=== PATIENT | female | born 1985 | race Caucasian/White ===

== ENCOUNTER 2016-05-16 19:20 | Emergency (ER) | payer BC ==
--- NOTE | 2016-05-16 19:54 | Emergency Department Record ---
History of Present Illness - General Chief Complaint: Abdominal Pain Stated Complaint: R SIDE PAIN Time Seen by Provider: 05/16/16 19:29 Source: Patient Mode of Arrival: Ambulatory Limitations: No limitations - History of Present Illness Initial Comments: 30 yo female presents to ED with a CC of right sided flank pain that began approximately 12 hours ago, reports similar symptoms with previous kidney stones. Patient denies fevers, chills, nausea, or vomiting symptoms, does report decreased urine output this afternoon and believes that a stone "might be stuck". Patient denies health problems at her baseline, reports lithotripsy with Dr. Roman previously. Complaint: Flank pain Onset/Timin -: Hour(s) Location: R Flank Radiation: None Migration to: No migration Severity: Mild Quality: Other Consistency: Constant Improves With: Nothing Worsens With: Nothing Context: Other Associated Symptoms: Hematuria, Other - Related Data LMP (females 10-50): Current Patient : No Home Medications Medication Instructions Recorded Confirmed Last Taken Dextroamphetamine/Amphetamine 20 mg PO QD tab 04/04/16 05/16/16 Unknown [Adderall] Sertraline HCl [Zoloft] 50 mg PO QD tab 04/04/16 05/16/16 Unknown Previous Rx's Medication Instructions Recorded Hydrocodone/Acetaminophen [Conception 1 tab PO Q6H PRN #10 tab 05/16/16 5mg/325mg] Tamsulosin HCl [Flomax] 0.4 mg PO DAILY #10 cap.er.24h 05/16/16 Allergies Allergy/AdvReac Type Severity Reaction Status Date / Time Penicillins Allergy rash Verified 05/16/16 19:30 Travel Screening - Travel/Exposure Within Last 30 Days Have you traveled within the last 30 days?: No - Travel/Exposure Within Last Year Have you traveled outside the [place] in the last year?: No - Additonal Travel Details Have you been exposed to anyone with a communicable illness?: No - Travel Symptoms Symptom Screening: None Review of Systems Constitutional: Denies: Chills, Fever, Malaise, Night sweats Eyes: Denies: Eye discharge, Eye pain ENT: Denies: Congestion, Ear pain, Epistaxis Respiratory: Denies: Cough, Dyspnea Cardiovascular: Denies: Chest pain, Dyspnea on exertion Endocrine: Denies: Fatigue, Heat or cold intolerance Gastrointestinal: Reports: Abdominal pain. Denies: Nausea, Vomiting Genitourinary: Reports: Dysuria, Retention. Denies: Frequency, Hematuria, Incontinence Musculoskeletal: Reports: Back pain (right sided flank pain). Denies: Arthralgia, Gout, Joint swelling Skin: Denies: Bruising, Change in color, Change in hair/nails Neurological: Denies: Abnormal gait, Confusion, Headache, Seizure Psychiatric: Denies: Anxiety Hematological/Lymphatic: Denies: Anemia, Blood Clots Past Medical History - SOCIAL HISTORY Smoking Status: Never smoker Alcohol Use: Occassional Drug Use: None - RESPIRATORY Hx Respiratory Disorders: No - CARDIOVASCULAR Hx Cardio Disorders: No - NEURO Hx Neuro Disorders: No - GI Hx GI Disorders: No - Hx Genitourinary Disorders: Yes Hx Kidney Stones: Yes - ENDOCRINE Hx Endocrine Disorders: No - MUSCULOSKELETAL Hx Musculoskeletal Disorders: No - PSYCH Hx Psych Problems: No - HEMATOLOGY/ONCOLOGY Hx Hematology/Oncology Disorders: No Family Medical History Any Significant Family History?: No Physical Exam - General General Appearance: Alert, Oriented x3, Cooperative, Moderate distress Limitations: No limitations - Head Head exam: Atraumatic, Normocephalic, Normal inspection Head exam detail: negative: Abrasion, Contusion, Ramsay's sign, General tenderness, Hematoma, Laceration - Eye Eye exam: Normal appearance. negative: Conjunctival injection, Periorbital swelling, Periorbital tenderness, Scleral icterus - ENT Ear exam: negative: Auricular hematoma, Auricular trauma Nasal Exam: negative: Active bleeding, Discharge, Dried blood, Foreign body Mouth exam: negative: Drooling, Laceration, Muffled voice, Tongue elevation - Neck Neck exam: Normal inspection. negative: Meningismus, Tenderness - Respiratory Respiratory exam: Normal lung sounds bilaterally. negative: Respiratory distress, Rhonchi, Stridor, Wheezes - Cardiovascular Cardiovascular Exam: Regular rate, Normal rhythm, Normal heart sounds - GI/Abdominal GI/Abdominal exam: Soft, Tenderness (mild tendernss on examiantion to the RLQ/ suprapubic and LLQ regions, no rebound, guarding, or peritoneal signs on examination). negative: Rebound, Rigid - Rectal Rectal exam: Deferred - exam: Deferred - Extremities Extremities exam: Normal inspection. negative: Calf tenderness, Pedal edema, Tenderness - Back Back exam: Reports: CVA tenderness (R). Denies: CVA tenderness (L) - Neurological Neurological exam: Alert, Normal gait, Oriented X3 - Psychiatric Psychiatric exam: Normal affect, Normal mood - Skin Skin exam: Normal color. negative: Abrasion Type of lesion: negative: abrasion Course Vital Signs 05/16/16 19:22 Temperature 98.7 F Pulse Rate 90 Respiratory 20 Rate Blood Pressure 130/87 Pulse Ox 95 - Reevaluation(s) Reevaluation #1: 05/16/16 20:34 Labs reviewed, UA large blood, otherwise labs are grossly unremarkable for an acute process. Reevaluation #2: 05/16/16 20:57 CT Abdomen and Pelvis: 5 mm partially obstructing stone right UVJ, mild- moderate hydronephrosis is present. Patient reassessed, reports that her pain symptoms are greatly improved. Patient was updated on all results, and appears stable for discharge on Flomax, Conception with instructions to follow-up with Dr. Roman in 1-3 day as directed. Medical Decision Making - Lab Data Result diagrams: 05/16/16 19:50 05/16/16 19:50 Disposition Disposition: Discharge Clinical Impression: Calculus of right kidney Disposition: Home, Self-Care Condition: (2) Stable Instructions: Kidney Stones (ED) Additional Instructions: Return to ED if your symptoms worsen or if you have any concerns. Conception and Flomax as directed. Follow-up with Dr. Roman in 1-3 days as directed. Prescriptions: Tamsulosin HCl [Flomax] 0.4 mg PO DAILY #10 cap.er.24h Hydrocodone/Acetaminophen [Conception 5mg/325mg] 1 tab PO Q6H PRN #10 tab PRN Reason: Pain - General Referrals: CHENCHO ROMAN [] - Forms: Patient Portal Access Time of Disposition: 21:00
[2016-05-16] MEDS: KETOROLAC 30 MG/ML VIAL IVP ONE (19:56)
[2016-05-16 19:58] LABS: BASO % 0.4 % (0-6); EOS % 1.1 % (0-6); GRAN % 51.4 % (47-80); HEMOGLOBIN 13.1 gm/dl (11.6-16.0); MEAN CELL VOLUME 88.5 fl (81-97); MEAN CORPUSCULAR HEMOGLOBIN 31.3 pg (27-33); MEAN CORPUSCULAR HGB CONC 35.4 g/dl (32-36); MEAN PLATELET VOLUME 10.1 fl (7.4-10.4); MONO % 8.1 % (0-9); PLATELET COUNT 190 K/uL (130-400); RED BLOOD COUNT 4.18 M/uL (3.80-5.40); RED CELL DISTRIBUTION WIDTH 12.9 % (11.5-14.5)
[2016-05-16 19:59] LABS: URINE APPEARANCE CLEAR; URINE BILIRUBIN NEGATIVE (NEGATIVE); URINE BLOOD LARGE (NEGATIVE); URINE COLOR YELLOW; URINE GLUCOSE (UA) NEGATIVE (NEGATIVE); URINE KETONE NEGATIVE (NEGATIVE); URINE LEUKOCYTE ESTERASE NEGATIVE (NEGATIVE); URINE NITRITE NEGATIVE (NEGATIVE); URINE PROTEIN NEGATIVE (NEGATIVE); URINE UROBILINOGEN 0.2 E.U./dL (0.20 - 1.00)
[2016-05-16 20:01] LABS: HCG,QUALITATIVE URINE NEGATIVE (NEGATIVE)
[2016-05-16 20:06] LABS: URINE AMORPHOUS SEDIMENT 1+; URINE BACTERIA NONE SEEN; URINE EPITHELIAL CELLS 0 - 2 (FEW); URINE WBC 0 - 2 (0-2/hpf)
[2016-05-16 20:13] LABS: ALB/GLOB RATIO 1.5 (1.1-1.8); ALBUMIN 4.1 gm/dL (3.5-5.0); ALKALINE PHOSPHATASE 67 U/L (38-126); ALT/SGPT 32 U/L (9-52); ANION GAP 10.2 (7-16); AST/SGOT 24 U/L (14-36); BILIRUBIN,TOTAL 0.38 mg/dL (0.2-1.3); BLOOD UREA NITROGEN 13 mg/dL (7-17); CARBON DIOXIDE 21.8 mmol/L (22-30); CREATININE 0.9 mg/dL (0.52-1.04); EST GLOMERULAR FILTRATION RATE > 60 ml/min; GLUCOSE,RANDOM 93 mg/dL (70-110); LIPASE 112 U/L (23-300); TOTAL PROTEIN 6.9 gm/dL (6.3-8.2)
[2016-05-16] MEDS: HYDROCODONE/APAP 5/325MG TABLET PO ONE (21:06)
--- NOTE | 2016-05-19 14:12 | CT SCAN REPORT ---
DATE: 05/16/2016. EXAM: CT SCAN OF THE ABDOMEN AND PELVIS. HISTORY: The patient has right flank pain. TECHNIQUE: Serial axial CT scan of the abdomen and pelvis was performed at 3.75 mm intervals from the dome of the diaphragm down to the pubic symphysis without the use of intravenous or oral contrast. Comparison CT scan dated 07/16 is provided. FINDINGS: The lung windows and lung bases demonstrate no CT evidence of a focal infiltrate or pleural effusion. The visualized heart size and contour is within normal limits. The liver, pancreas, bilateral adrenal glands, and gallbladder are unremarkable. The spleen measures 13.8 cm in AP dimension. This finding is slightly increased in size with respect to the prior CT scan and suggests mild splenomegaly. There is mild to moderate right-sided hydronephrosis and hydroureter. At the right ureterovesical junction there is a partially obstructing 5.3 mm calculus. A nonobstructive 2.0 mm calculus was noted within the inferior pole of the right kidney. Multiple nonobstructive calculi are noted within the left kidney. The largest of these is within the inferior pole and measures approximately 3.0 mm. There is no CT evidence of hydronephrosis or hydroureter within the left kidney. The contour and caliber of the abdominal aorta and pelvic arteries are within normal limits. There is no CT evidence of retroperitoneal, pelvic, or inguinal lymphadenopathy. The bowel gas pattern is nonspecific and nonobstructive. There is no CT evidence of free intraperitoneal air or free intraperitoneal fluid. The anterior abdominal wall is unremarkable. The urinary bladder is partially decompressed. There is a T-shaped intrauterine contraceptive device. The left ovary contains a 3.0 cm ovarian cyst. If there is further clinical concern then an ultrasound examination of the pelvis can be obtained for further evaluation. IMPRESSION: 1. PARTIALLY OBSTRUCTING 5.0 MM CALCULUS WITHIN THE RIGHT URETEROVESICAL JUNCTION IS NOTED DISCUSSED ABOVE. 2. A 3.0 CM LEFT OVARIAN CYST. IF THERE IS FURTHER CLINICAL CONCERN THEN AN ULTRASOUND EXAMINATION OF THE PELVIS CAN BE OBTAINED FOR FURTHER EVALUATION. JOB NUMBER: [id number] MTDD
== END 2016-05-16 21:10 | disposition home or self-care (01) ==
LOC: ER 19:20
DX: N13.2 Hydronephrosis with renal and ureteral calculous obstruction (principal); R31.0 Gross hematuria; Z87.442 Personal history of urinary calculi
CPT/HCPCS: 99284 ×2; 96374; 83690; 85025; 80053; 81001; 81025; 74176; J1885

== ENCOUNTER 2019-05-08 12:19 | Emergency (ER) | payer BC ==
[2019-05-08] MEDS ORDERED: KETOROLAC 30 MG/ML VIAL IVP ONE (13:03)
[2019-05-08] MEDS ORDERED: 0.9 % SODIUM CHLORIDE 1,000 ML BAG IV ONE ×2 (13:03→15:27)
[2019-05-08 13:12] LABS: ABSOLUTE NEUTROPHIL COUNT 3.25; BASO % 0.5 % (0-6); EOS % 1.6 % (0-6); GRAN % 53.3 % (47-80); HEMATOCRIT 44.5 % (35.0-47.0); HEMOGLOBIN 15.1 gm/dl (11.6-16.0); LYMPH % 35.8 % (16-45); MEAN CELL VOLUME 90.3 fl (81-97); MEAN CORPUSCULAR HEMOGLOBIN 30.6 pg (27-33); MEAN CORPUSCULAR HGB CONC 33.9 g/dl (32-36); MEAN PLATELET VOLUME 9.4 fl (7.4-10.4); MONO % 8.8 % (0-9); PLATELET COUNT 262 K/uL (130-400); RED BLOOD COUNT 4.93 M/uL (3.80-5.40); RED CELL DISTRIBUTION WIDTH 13.2 % (11.5-14.5); WHITE BLOOD COUNT W/O DIFF 6.1 K/uL (4.2-12.2)
[2019-05-08 13:25] LABS: BLOOD UREA NITROGEN 10 mg/dL (6-20); CREATININE 0.9 mg/dL (0.5-0.9); EST GLOMERULAR FILTRATION RATE > 60 mL/min
[2019-05-08 13:28] LABS: GLUCOSE,RANDOM 112 mg/dL (74-109)
--- NOTE | 2019-05-08 14:52 | Emergency Department Record ---
History of Present Illness - General Chief complaint: Flank Pain Stated complaint: FLANK PAIN Time Seen by Provider: 05/08/19 12:39 Source: Patient Mode of Arrival: Ambulatory Limitations: No limitations - History of Present Illness Initial comments: pt comes in w l flank pain that feels like her previous kidney stones. Onset/Timin -: Hour(s) Radiation: L flank Severity: Moderate Severity scale (1-10): 8 Quality: Sharp Consistency: Constant, Intermittent Improves with: None Worsens with: None Patient : No Associated Symptoms: Denies other symptoms - Related Data Home Medications Medication Instructions Recorded Confirmed Last Taken Hydrocodone/Acetaminophen 1 tab PO Q6HR PRN 05/08/19 05/08/19 05/08/19 [Hydrocodone/Acetaminophen 5mg/325mg] Tamsulosin HCl [Flomax] 0.4 mg PO DAILY 05/08/19 05/08/19 05/08/19 Previous Rx's Medication Instructions Recorded Hydrocodone/Acetaminophen [Lindon 1 each PO Q6HR #12 tablet 05/08/19 5-325 Tablet] Tamsulosin HCl [Flomax] 0.4 mg PO DAILY #7 cap.er.24h 05/08/19 Allergies Allergy/AdvReac Type Severity Reaction Status Date / Time Penicillins Allergy rash Verified 05/08/19 12:38 Travel Screening - Travel/Exposure Within Last 30 Days Have you traveled within the last 30 days?: No - Travel/Exposure Within Last Year Have you traveled outside the [place] in the last year?: No - Additonal Travel Details Have you been exposed to anyone with a communicable illness?: No - Travel Symptoms Symptom Screening: None Review of Systems Reviewed: No additional complaints except as noted below Constitutional: Reports: As per HPI. Denies: Chills, Fever, Malaise, Night sweats, Weakness, Weight change Eyes: Reports: As per HPI. Denies: Eye discharge, Eye pain, Photophobia, Vision change ENT: Reports: As per HPI. Denies: Congestion, Dental pain, Ear pain, Epistaxis, Hearing loss, Throat pain Respiratory: Reports: As per HPI. Denies: Cough, Dyspnea, Hemoptysis, Stridor, Wheezes Cardiovascular: Reports: As per HPI. Denies: Arrhythmia, Chest pain, Dyspnea on exertion, Edema, Murmurs, Orthopnea, Palpitations, Paroxysmal nocturnal dyspnea, Rheumatic Fever, Syncope Endocrine: Reports: As per HPI. Denies: Fatigue, Heat or cold intolerance, Polydipsia, Polyuria Gastrointestinal: Reports: As per HPI. Denies: Abdominal pain, Constipation, Diarrhea, Hematemesis, Hematochezia, Melena, Nausea, Vomiting Genitourinary: Reports: As per HPI. Denies: Abnormal menses, Discharge, Dyspareunia, Dysuria, Frequency, Hematuria, Incontinence, Retention, Urgency Musculoskeletal: Reports: As per HPI. Denies: Arthralgia, Back pain, Gout, Joint swelling, Myalgia, Neck pain Skin: Reports: As per HPI. Denies: Bruising, Change in color, Change in hair/nails, Lesions, Pruritus, Rash Neurological: Reports: As per HPI. Denies: Abnormal gait, Confusion, Headache, Numbness, Paresthesias, Seizure, Tingling, Tremors, Vertigo, Weakness Psychiatric: Reports: As per HPI. Denies: Anxiety, Auditory hallucinations, Depression, Homicidal thoughts, Suicidal thoughts, Visual hallucinations Hematological/Lymphatic: Reports: As per HPI. Denies: Anemia, Blood Clots, Easy bleeding, Easy bruising, Swollen glands Past Medical History - SOCIAL HISTORY Smoking Status: Never smoker Alcohol Use: Occasional Drug Use: None - RESPIRATORY Hx Respiratory Disorders: No - CARDIOVASCULAR Hx Cardio Disorders: No - NEURO Hx Neuro Disorders: No - GI Hx GI Disorders: No - Hx Genitourinary Disorders: Yes Hx Kidney Stones: Yes - ENDOCRINE Hx Endocrine Disorders: No - MUSCULOSKELETAL Hx Musculoskeletal Disorders: No - PSYCH Hx Psych Problems: No - HEMATOLOGY/ONCOLOGY Hx Hematology/Oncology Disorders: No Family Medical History Any Significant Family History?: No Physical Exam - General General Appearance: Alert, Oriented x3, Cooperative, No acute distress - Head Head exam: Normal inspection - Eye Eye exam: Normal appearance, PERRL, EOMI Pupils: Normal accommodation - ENT ENT exam: Normal exam, Mucous membranes moist, Normal external ear exam, Normal orophraynx Ear exam: Normal external inspection. negative: External canal tenderness Nasal Exam: Normal inspection. negative: Discharge, Sinus tenderness Mouth exam: Normal external inspection, Tongue normal Teeth exam: Normal inspection. negative: Dental caries Throat exam: Normal inspection. negative: Tonsillar erythema, Tonsillar exudate - Neck Neck exam: Normal inspection, Full ROM. negative: Tenderness - Respiratory Respiratory exam: Normal lung sounds bilaterally. negative: Respiratory distress - Cardiovascular Cardiovascular Exam: Regular rate, Normal rhythm, Normal heart sounds - GI/Abdominal GI/Abdominal exam: Soft, Normal bowel sounds. negative: Tenderness - Rectal Rectal exam: Deferred - exam: Deferred - Extremities Extremities exam: Normal inspection, Full ROM, Normal capillary refill. negative: Tenderness - Back Back exam: Reports: CVA tenderness (L), Full ROM. Denies: Muscle spasm, Rash noted, Tenderness - Neurological Neurological exam: Alert, CN II-XII intact, Normal gait, Oriented X3 - Psychiatric Psychiatric exam: Normal affect, Normal mood - Skin Skin exam: Dry, Intact, Normal color, Warm Course Vital Signs 05/08/19 12:43 Temperature 97.5 F L Pulse Rate 61 Respiratory 20 Rate Blood Pressure 150/105 Pulse Ox 100 - Reevaluation(s) Reevaluation #1: 05/08/19 16:27 pt feels much better Medical Decision Making - Lab Data Result diagrams: 05/08/19 12:44 05/08/19 12:44 Lab Results 05/08/19 05/08/19 Range/Units 12:44 12:44 WBC 6.1 (4.2-12.2) K/uL RBC 4.93 (3.80-5.40) M/uL Hgb 15.1 (11.6-16.0) gm/dl Hct 44.5 (35.0-47.0) % MCV 90.3 (81-97) fl MCH 30.6 (27-33) pg MCHC 33.9 (32-36) g/dl RDW 13.2 (11.5-14.5) % Plt Count 262 (130-400) K/uL MPV 9.4 (7.4-10.4) fl Gran % 53.3 (47-80) % Lymphocytes % 35.8 (16-45) % Monocytes % 8.8 (0-9) % Eosinophils % 1.6 (0-6) % Basophils % 0.5 (0-6) % Absolute Neutrophils 3.25 Sodium 140 (136-145) mmol/L Potassium 3.1 L (3.4-4.5) mmol/L Chloride 100 (98-107) mmol/L Carbon Dioxide 23.0 (22-29) mmol/L Anion Gap 17.0 H (7-16) BUN 10 (6-20) mg/dL Creatinine 0.9 (0.5-0.9) mg/dL Estimated GFR > 60 mL/min Random Glucose 112 H (74-109) mg/dL Calcium 9.5 (8.6-10.0) mg/dL Disposition Disposition: Discharge Clinical Impression: Renal lithiasis, Hydronephrosis concurrent with and due to calculi of kidney and ureter Disposition: Home, Self-Care Condition: (1) Good Instructions: Kidney Stones (ED), Renal Colic (ED), How to Strain Your Urine (ED) Additional Instructions: follow up with urologist. push fluids. return sooner if worse. Prescriptions: Hydrocodone/Acetaminophen [Lindon 5-325 Tablet] 1 each PO Q6HR #12 tablet Tamsulosin HCl [Flomax] 0.4 mg PO DAILY #7 cap.er.24h Forms: Patient Portal Access Quality - Quality Measures Quality Measures: N/A - Blood Pressure Screening Does Patient Have Any of the Following: No Blood Pressure Classification: Hypertensive Reading Systolic Measurement: 150 Diastolic Measurement: 105 Screening for High Blood Pressure: < First Hypertensive BP, F/U Documented > [G8950] First Hypertensive Follow-up Interventions: Follow-up with rescreen GT 1 day and LT 4 weeks.
[2019-05-08 15:36] LABS: URINE BILIRUBIN NEGATIVE (NEGATIVE); URINE BLOOD LARGE (NEGATIVE); URINE COLOR YELLOW; URINE GLUCOSE (UA) NEGATIVE (NEGATIVE); URINE KETONE 40 mg/dL (NEGATIVE); URINE LEUKOCYTE ESTERASE NEGATIVE (NEGATIVE); URINE NITRITE NEGATIVE (NEGATIVE); URINE PROTEIN NEGATIVE (NEGATIVE)
[2019-05-08 15:37] LABS: URINE APPEARANCE SL CLOUDY
[2019-05-08 15:39] LABS: HCG,QUALITATIVE URINE NEGATIVE (NEGATIVE)
[2019-05-08 15:41] LABS: URINE EPITHELIAL CELLS 0 - 2 (FEW); URINE RBC 36 - 50 (NONE SEEN); URINE WBC 0 - 2 (0-2/hpf)
[2019-05-08 15:42] LABS: URINE BACTERIA FEW; URINE CALCIUM OXALATE CRYSTALS FEW /hpf; URINE MUCUS MODERATE
--- NOTE | 2019-05-08 16:04 | CT SCAN REPORT ---
EXAMINATION: CT Abdomen and Pelvis without IV Contrast EXAM DATE: 05/08/2019 3:48 PM TECHNIQUE: Standard protocol CT imaging of the abdomen and pelvis was performed without intravenous c ontrast. INDICATION: l flank pain COMPARISON: 02/18/2019 ENCOUNTER: Not applicable CT ABDOMEN AND PELVIS FINDINGS: Lung Bases: Included extent of the lung bases are clear. Hepatobiliary: The liver has a normal size with a smooth surface. There is no biliary dilatation and the gallbladder is unremarkable. Pancreas: The pancreas is normal. Spleen: The spleen is not enlarged. Adrenals: The adrenal glands are normal. Kidneys, Ureters, & Bladder: Both kidneys have a normal size and morphology. There are scattered fo ci of nephrolithiasis bilaterally. Previously noted obstructing stone at the right uterovesical junct ion is no longer present and the previous right-sided hydronephrosis has resolved. There is now moder ate left hydronephrosis and hydroureter and there is an approximately 4 mm obstructing stone at the l evel of the left ureterovesical junction. At this time no significant perinephric stranding or reacti ve changes. Both ureters have a normal course and caliber and the urinary bladder a normal morphology and uniform wall thickness. Gastrointestinal: The stomach and small bowel are normal with no obstruction or inflammation. The claritza endix is normal. The large bowel is within normal limits. Reproductive Organs: IUD noted Lymphatic System: There is no adenopathy within the abdomen or pelvis. Vasculature: Normal caliber abdominal aorta Peritoneum: No free fluid, free air, or inflammation Abdominal wall & Musculoskeletal: No suspicious bone lesions. Assessment of the solid organs, soft tissues, and vascular structures is overall limited on noncontra st imaging, IMPRESSION: Bilateral foci of nephrolithiasis with an approximately 4 mm obstructing stone at the left ureteroves ical junction and moderate left-sided hydronephrosis and hydroureter. Previously noted obstructing st one on the right and right-sided hydronephrosis has resolved. Dictated by: Jet Mccain MD on 05/08/2019 3:53 PM. .
[2019-05-08] MEDS ORDERED: HYDROMORPHONE HCL 2 MG/ML VIAL IVP ONE (16:24)
== END 2019-05-08 17:12 | disposition home or self-care (01) ==
LOC: ER 12:19
DX: N13.2 Hydronephrosis with renal and ureteral calculous obstruction (principal); Z87.442 Personal history of urinary calculi
CPT/HCPCS: 99284 ×2; 96374; 96375; 85025; 80048; 81001; 81025; 74176; J1885; J1170; J7030